=== PATIENT | male | born 1955 | race African-American/Black ===

== ENCOUNTER 2016-11-16 04:58 | Observation (INO) | payer OTHER ==
[2016-11-16] MEDS ORDERED: NS 1,000 ML IV ONE (05:20)
[2016-11-16 05:27] LABS: % IMMATURE GRANULYOCYTES 0.5 % (0.0-1.1); ABSOLUTE IMMATURE GRANULOCYTES 0.04 10^3/uL (0.00-0.10); ADD DIFF? NO; ADD MORPH? NO; ADD SCAN? NO; ATYPICAL LYMPHOCYTE FLAG 0 (0-99); FRAGMENT RBC FLAG 0 (0-99); HEMATOCRIT 43.2 % (40.0-51.0); HEMOGLOBIN 14.7 g/dL (13.7-17.5); LEFT SHIFT FLG 0 (0-99); LIPEMIA HEMOLYSIS FLAG 90 (0-99); MEAN CELL VOLUME 79.3 fL (81.5-99.8); MEAN PLATELET VOLUME 10.8 fL (8.7-11.7); PLATELET CLUMPS FLAG 10 (0-99); PLATELET COUNT 207 10^3/uL (150-400); RED BLOOD CELL COUNT 5.45 10^6/uL (4.40-6.38); RED CELL DISTRIBUTION WIDTH 12.1 % (11.5-15.2)
--- NOTE | 2016-11-16 05:33 | EDPHY ---
H & P Stated Complaint: severe L flank 8/10 since last night with vomiting. HPI/ROS: HPI CHIEF COMPLAINT: Left flank pain nausea, vomiting HISTORY OF PRESENT ILLNESS: This patient 60-year-old male, significant past medical history for coronary artery disease with stent, diet-controlled diabetes , kidney stones, who presents emergency room at 5:15 a.m. in the morning with left-sided flank pain. Patient tells me that around 11 o'clock midnight last night he has had ongoing constant left flank pain that does not radiate. He denies a going to his bladder or belly. Stays in his left low flank. Describes a constant dull ache. Denies chest pain or shortness of breath. He had 2-3 episodes of nausea with vomiting present. No fever. Denies urinary symptoms. Tells me it feels like he previously had a kidney stone. He decided to come to the emergency room because the pain lasted all night. Since arrival has resolved. He denies any flank pain, nausea vomiting. Denies chest pain or shortness of breath. Denies fever. Past Medical History: Diet-controlled diabetes, coronary artery disease with stent, kidney stones, spondylolisthesis Past Surgical History: Stent cardiac, kidney stone surgery Social History: Denies daily use of drugs alcohol tobacco products Family History: Noncontributory ROS REVIEW OF SYSTEMS: A comprehensive 10 point review of systems is otherwise negative aside from elements mentioned in the history of present illness. Exam Constitutional appears well nontoxic, triage nursing summary reviewed, vital signs reviewed, awake/alert. Eyes normal conjunctivae and sclera, EOMI, PERRLA. HENT normal inspection, atraumatic, moist mucus membranes, no epistaxis, neck supple/ no meningismus, no raccoon eyes. Respiratory clear to auscultation bilaterally, normal breath sounds, no respiratory distress, no wheezing. Cardiovascular rate normal, regular rhythm, no murmur, no edema, distal pulses normal. Gastrointestinal soft, non-tender, no rebound, no guarding, normal bowel sounds, no distension, no pulsatile mass. Genitourinary no CVA tenderness. Musculoskeletal no midline vertebral tenderness, full range of motion, no calf swelling, no tenderness of extremities, no meningismus, good pulses, neurovascularly intact. Skin pink, warm, & dry, no rash, skin atraumatic. Neurologic awake, alert and oriented x 3, AAOx3, moves all 4 extremities equally, motor intact, sensory intact, CN II-XII intact, normal cerebellar, normal vision, normal speech. Psychiatric normal mood/affect. Heme/Lymph/Immune no lymphadenopathy. Differential Diagnosis: Includes but is not limited to in a particular order: Kidney stone, hydroureter, hydronephrosis, pyelonephritis, ruptured AAA Medical Decision Making: Plan for this patient blood work, IV fluid bolus, CT abdomen pelvis without contrast for flank pain. Re-evaluation: CT scan of the abdomen pelvis without IV contrast. The results of the study are this shows a 17 mm x 11 mm x 10 mm left-sided stone at the L3 region otherwise no other acute inflammatory process.. The study was read by Dr. Leyva I viewed the images myself on the PACS system. [id number]: Given the size of the stone he will need to follow up with Urology. I referred him this. I will give him Zofran for nausea Mouthcard for pain control. Recommend drinking lots of fluids stay well-hydrated return emergency room with severe pain vomiting or fever. He understands he has very large stone that will need to be broken up. 0554 updated patient. He is resting comfortably. No vomiting no flank pain at this time. Comfortable going home. Understands he needs to follow up with Urology. Understands return precautions. Source: Patient - Personal History Current Tetanus Diphtheria and Acellular Pertussis (TDAP): Yes Tetanus Vaccine Date: 2014 - Medical/Surgical History Hx Asthma: No Hx Chronic Respiratory Disease: No Hx Diabetes: Yes Hx Cardiac Disease: Yes Hx Renal Disease: No Hx Cirrhosis: No Hx Alcoholism: No Hx HIV/AIDS: No Hx Splenectomy or Spleen Trauma: No Other PMH: Diet controlled diabetes type 2. spondylolethiais since age 8. herniated,bulging disc L 4/5. Kidney stones and removal. circumcision age 13, tonsils age 6. overactive bladder, 2 MIs with cardiac stent - Social History Smoking Status: Never smoked Constitutional: Initial Vital Signs Temperature (C) 36.8 C 11/16/16 05:10 Heart Rate 68 11/16/16 05:10 Respiratory Rate 18 11/16/16 05:10 Blood Pressure 135/85 H 11/16/16 05:10 O2 Sat (%) 98 11/16/16 05:10 O2 Delivery Mode Room Air Allergies/Adverse Reactions: No Known Allergies Allergy (Unverified 11/16/16 05:08) Home Medications: Medication Instructions Recorded Aspirin [Aspirin 81mg (*)] 11/16/16 Hydrocodone/APAP 5/325 [Mouthcard 1 - 2 tab PO Q4H PRN #10 tab 11/16/16 5/325] Metoprolol Succinate 25 mg PO BID 11/16/16 Ondansetron HCl [Zofran] 4 mg PO Q4-6PRN PRN #10 tablet 11/16/16 Tolterodine Tartrate [Detrol LA 4 mg DAILY 11/16/16 2MG (*)] Medical Decision Making - Data Points Laboratory Results: Laboratory Results 11/16/16 05:20 11/16/16 05:20 11/16/16 11/16/16 05:20 05:20 WBC 8.52 10^3/uL 10^3/uL (3.80-9.50) RBC 5.45 10^6/uL 10^6/uL (4.40-6.38) Hgb 14.7 g/dL g/dL (13.7-17.5) Hct 43.2 % % (40.0-51.0) MCV 79.3 fL L fL (81.5-99.8) MCH 27.0 pg L pg (27.9-34.1) MCHC 34.0 g/dL g/dL (32.4-36.7) RDW 12.1 % % (11.5-15.2) Plt Count 207 10^3/uL 10^3/uL (150-400) MPV 10.8 fL fL (8.7-11.7) Neut % (Auto) 79.5 % H % (39.3-74.2) Lymph % (Auto) 13.1 % L % (15.0-45.0) [place] % (Auto) 5.9 % % (4.5-13.0) Eos % (Auto) 0.6 % % (0.6-7.6) Baso % (Auto) 0.4 % % (0.3-1.7) Nucleat RBC Rel Count 0.0 % % (0.0-0.2) Absolute Neuts (auto) 6.78 10^3/uL H 10^3/uL (1.70-6.50) Absolute Lymphs (auto) 1.12 10^3/uL 10^3/uL (1.00-3.00) Absolute Monos (auto) 0.50 10^3/uL 10^3/uL (0.30-0.80) Absolute Eos (auto) 0.05 10^3/uL 10^3/uL (0.03-0.40) Absolute Basos (auto) 0.03 10^3/uL 10^3/uL (0.02-0.10) Absolute Nucleated RBC 0.00 10^3/uL 10^3/uL (0-0.01) Immature Gran % 0.5 % % (0.0-1.1) Immature Gran # 0.04 10^3/uL 10^3/uL (0.00-0.10) Sodium 133 mEq/L L mEq/L (134-144) Potassium 4.4 mEq/L mEq/L (3.5-5.2) Chloride 103 mEq/L mEq/L (97-110) Carbon Dioxide 18 mEq/l L mEq/l (22-31) Anion Gap 12 mEq/L mEq/L (8-16) BUN 23 mg/dL mg/dL (7-23) Creatinine 1.7 mg/dL H mg/dL (0.7-1.3) Estimated GFR 41 Glucose 246 mg/dL H mg/dL (70-100) Calcium 9.3 mg/dL mg/dL (8.5-10.4) Lipase 90.0 IU/L IU/L (23-300) Medications Given: Discontinued Medications Sodium Chloride (Ns) 1,000 mls @ 0 mls/hr IV ONCE ONE; Wide Open PRN Reason: Protocol Stop: 11/16/16 05:21 Last Admin: 11/16/16 05:32 Dose: 1,000 mls Departure - Departure Disposition: Home, Routine, Self-Care Clinical Impression: Kidney stone on left side Condition: Fair Instructions: Renal Colic (ED), Kidney Stones (ED) Additional Instructions: 1. Drink lots of fluids stay well-hydrated. 2. Return emergency room if you have worsening pain questions or concerns. 3. You will need to call Urology in follow-up with them. I would recommend calling them on Thursday for an appointment. 4. You have a very large kidney stone on the left side that will need to be either broken up and removed. Referrals: Patient,NotPresent [Primary Care Provider] - As per Instructions Jameson Zamarripa MD [Medical Doctor] - As per Instructions Prescriptions: Hydrocodone/APAP 5/325 [Mouthcard 5/325] 1 - 2 tab PO Q4H PRN #10 tab PRN Reason: Pain, Moderate Ondansetron HCl [Zofran] 4 mg PO Q4-6PRN PRN #10 tablet PRN Reason: Nausea/Vomiting, Use 1st
[2016-11-16 05:44] LABS: CALCIUM 9.3 mg/dL (8.5-10.4); CREATININE 1.7 mg/dL (0.7-1.3); POTASSIUM 4.4 mEq/L (3.5-5.2)
[2016-11-16] MEDS ORDERED: ONDANSETRON 4 MG/2 ML VIAL IVP ONE (05:58)
[2016-11-16] MEDS ORDERED: fentaNYL 100 MCG/2 ML INJ IVP ONE (05:58)
[2016-11-16 06:04] LABS: COLOR YELLOW; LEUKOCYTE ESTERASE,URINE NEGATIVE (NEGATIVE); NITRITE,URINE NEGATIVE (NEGATIVE)
[2016-11-16 06:11] LABS: MUCUS 1+ /lpf (NONE-1+)
[2016-11-16 06:13] LABS: AMORPHOUS 1+ /hpf (NONE-1+); BACTERIA TRACE /hpf (NONE SEEN); RBC,URINE 0-1 /hpf (0-3); WBC,URINE 0-1 /hpf (0-3)
[2016-11-16] MEDS ORDERED: HYDROmorphONE/DILAUDID 1 MG/ML SYR IVP ONE (06:24)
[2016-11-16] MEDS ORDERED: HYDROmorphONE/DILAUDID 1 MG/ML SYR IVP PRN (06:43)
[2016-11-16] MEDS ORDERED: ONDANSETRON 4 MG/2 ML VIAL IVP PRN (06:43)
[2016-11-16] MEDS ORDERED: ACETAMINOPHEN 325 MG TAB PO PRN (06:43)
[2016-11-16] MEDS ORDERED: ONDANSETRON DISINTEGRATING 4 MG TAB PO PRN (06:43)
[2016-11-16] MEDS ORDERED: PROMETHAZINE HCL 25 MG TAB PO PRN (06:43)
[2016-11-16] MEDS ORDERED: PROMETHAZINE HCL 25 MG/ML INJ IVP PRN (06:43)
[2016-11-16] MEDS ORDERED: HYDROmorphONE/DILAUDID 2 MG TAB PO PRN (06:43)
[2016-11-16] MEDS ORDERED: NS 1,000 ML IV SCH (06:45)
[2016-11-16] MEDS ORDERED: LACTULOSE 20 GM/30 ML UDCUP PO PRN (06:46)
[2016-11-16] MEDS ORDERED: POLYETHYLENE GLYCOL 3350 17 GM PKT PO PRN (06:46)
[2016-11-16] MEDS ORDERED: BISACODYL 10 MG SUPP PR PRN (06:46)
[2016-11-16 06:59] VITALS: RESP 18
[2016-11-16 07:34] VITALS: BP 113/62; PULSE 57; TEMP 98.1; O2SAT 97
--- NOTE | 2016-11-16 08:14 | PDGENHP ---
History and Physical - Chief Complaint Acute abdominal pain - History of Present Illness Primary care provider: Dr. Mitesh Syed HPI: 60-year-old male presenting with acute abdominal pain located in the left flank, characterized as 10/10 in severity, associated with nausea and vomiting and onset of severe symptoms at 11:30 p.m. on the night of presentation. Duration was constant thereafter and the pain was only alleviated by fentanyl in the urgent care. Prior to his onset of this severe pain, the patient reports he has been having intermittent bouts of left flank pain over the preceding 24 hours. He otherwise denies any dysuria, hematuria, diarrhea. He reports that the pain is similar in character and location to previous kidney stones, the most recent 1 in 2014. He reports no recent dietary changes and no recent episodes of severe exertion or poor oral intake of fluids. He reports that he is physically active at baseline and goes on walks daily. He does not experience any acute shortness of breath or chest pain when he exerts himself. History Information - Allergies/Home Medication List Allergies/Adverse Reactions: No Known Allergies Allergy (Unverified 11/16/16 05:08) Home Medications: Aspirin [Aspirin 81mg (*)] 11/16/16 [Last Taken Unknown] Metoprolol Succinate 25 mg PO BID 11/16/16 [Last Taken Unknown] Tolterodine Tartrate [Detrol LA 2MG (*)] 4 mg DAILY 11/16/16 [Last Taken Unknown ] I have personally reviewed and updated: family history, medical history, social history, surgical history - Past Medical History Additional medical history: Left-sided nephrolithiasis. Overactive bladder. Diet-controlled diabetes. Coronary artery disease. Spondylolisthesis - Surgical History Additional surgical history: Cardiac stent in 2014. Cystoscopy with stone retrieval in past - Family History Additional family history: Siblings with diabetes, father with kidney stones, no first-degree relatives with end-stage renal disease - Social History Smoking Status: Never smoked Alcohol Use: None Drug Use: None Additional social history: Lives in [place], originally from [place] Review of Systems ROS: 10pt was reviewed & negative except for what was stated in HPI & below Gastrointestinal: Reports: vomitting, abdominal pain, nausea Physical Exam Temp Pulse Resp BP Pulse Ox 36.7 C 57 L 18 113/62 97 11/16/16 07:28 11/16/16 07:28 11/16/16 07:28 11/16/16 07:28 11/16/16 07:28 O2 (L/minute) 2 Constitutional: no apparent distress, appears nourished, not in pain Eyes: PERRL, anicteric sclera, EOMI Ears, Nose, Mouth, Throat: moist mucous membranes, hearing normal, ears appear normal, no oral mucosal ulcers Cardiovascular: regular rate and rhythym, no murmur, rub, or gallop, No edema Respiratory: no respiratory distress, no rales or rhonchi, clear to auscultation Gastrointestinal: normoactive bowel sounds, no palpable masses, tenderness ( Left mid abdomen), No guarding, No distension Genitourinary: no bladder fullness, no bladder tenderness Skin: warm, normal color, no rashes or abrasions, no fluctuance, no induration, No mottled Neurologic: AAOx3, No facial droop Psychiatric: interacting appropriately, not anxious, not encephalopathic, thought process linear Lab Data & Imaging Review 11/16/16 05:20 11/16/16 05:20 WBC 8.52 10^3/uL (3.80-9.50) 11/16/16 05:20 RBC 5.45 10^6/uL (4.40-6.38) 11/16/16 05:20 Hgb 14.7 g/dL (13.7-17.5) 11/16/16 05:20 Hct 43.2 % (40.0-51.0) 11/16/16 05:20 MCV 79.3 fL (81.5-99.8) L 11/16/16 05:20 MCH 27.0 pg (27.9-34.1) L 11/16/16 05:20 MCHC 34.0 g/dL (32.4-36.7) 11/16/16 05:20 RDW 12.1 % (11.5-15.2) 11/16/16 05:20 Plt Count 207 10^3/uL (150-400) 11/16/16 05:20 MPV 10.8 fL (8.7-11.7) 11/16/16 05:20 Neut % (Auto) 79.5 % (39.3-74.2) H 11/16/16 05:20 Lymph % (Auto) 13.1 % (15.0-45.0) L 11/16/16 05:20 [place] % (Auto) 5.9 % (4.5-13.0) 11/16/16 05:20 Eos % (Auto) 0.6 % (0.6-7.6) 11/16/16 05:20 Baso % (Auto) 0.4 % (0.3-1.7) 11/16/16 05:20 Nucleat RBC Rel Count 0.0 % (0.0-0.2) 11/16/16 05:20 Absolute Neuts (auto) 6.78 10^3/uL (1.70-6.50) H 11/16/16 05:20 Absolute Lymphs (auto) 1.12 10^3/uL (1.00-3.00) 11/16/16 05:20 Absolute Monos (auto) 0.50 10^3/uL (0.30-0.80) 11/16/16 05:20 Absolute Eos (auto) 0.05 10^3/uL (0.03-0.40) 11/16/16 05:20 Absolute Basos (auto) 0.03 10^3/uL (0.02-0.10) 11/16/16 05:20 Absolute Nucleated RBC 0.00 10^3/uL (0-0.01) 11/16/16 05:20 Immature Gran % 0.5 % (0.0-1.1) 11/16/16 05:20 Immature Gran # 0.04 10^3/uL (0.00-0.10) 11/16/16 05:20 Sodium 133 mEq/L (134-144) L 11/16/16 05:20 Potassium 4.4 mEq/L (3.5-5.2) 11/16/16 05:20 Chloride 103 mEq/L (97-110) 11/16/16 05:20 Carbon Dioxide 18 mEq/l (22-31) L 11/16/16 05:20 Anion Gap 12 mEq/L (8-16) 11/16/16 05:20 BUN 23 mg/dL (7-23) 11/16/16 05:20 Creatinine 1.7 mg/dL (0.7-1.3) H 11/16/16 05:20 Estimated GFR 41 11/16/16 05:20 Glucose 246 mg/dL (70-100) H 11/16/16 05:20 Calcium 9.3 mg/dL (8.5-10.4) 11/16/16 05:20 Lipase 90.0 IU/L (23-300) 11/16/16 05:20 Urine Color YELLOW 11/16/16 05:54 Urine Appearance CLEAR 11/16/16 05:54 Urine pH 6.0 (5.0-7.5) 11/16/16 05:54 Ur Specific [place] 1.020 (1.002-1.030) 11/16/16 05:54 Urine Protein NEGATIVE (NEGATIVE) 11/16/16 05:54 Urine Ketones TRACE (NEGATIVE) H 11/16/16 05:54 Urine Blood NEGATIVE (NEGATIVE) 11/16/16 05:54 Urine Nitrate NEGATIVE (NEGATIVE) 11/16/16 05:54 Urine Bilirubin NEGATIVE (NEGATIVE) 11/16/16 05:54 Urine Urobilinogen 0.2 EU (0.2-1.0) 11/16/16 05:54 Ur Leukocyte Esterase NEGATIVE (NEGATIVE) 11/16/16 05:54 Urine RBC 0-1 /hpf (0-3) 11/16/16 05:54 Urine WBC 0-1 /hpf (0-3) 11/16/16 05:54 Ur Epithelial Cells TRACE /lpf (NONE-1+) 11/16/16 05:54 Amorphous Sediment 1+ /hpf (NONE-1+) 11/16/16 05:54 Urine Bacteria TRACE /hpf (NONE SEEN) H 11/16/16 05:54 Urine Mucus 1+ /lpf (NONE-1+) 11/16/16 05:54 Urine Glucose 3+ (NEGATIVE) H 11/16/16 05:54 Visualized and Interpreted imaging results: Yes Interpretation: CT of the abdomen demonstrating 17 mm x 11 mm x 10 mm left- sided ureteral stone with hydronephrosis, additional 1 cm stone in the left renal pole Assessment & Plan Assessment: 60-year-old male presenting with acute obstructive uropathy in the setting of chronic nephrolithiasis Plan: 1. Obstructive uropathy. Acute, new problem this provider, further workup indicated. Secondary to left ureteral stone with resultant acute kidney injury secondary to hydronephrosis -requires urgent urologic consultation, Dr. Zamarripa has reportedly been contacted by Dr. Colvin -supportive care interim with IV pain medications, high rate IV fluids, remain NPO until urologic procedure performed -hold on Flomax given patient's history of overactive bladder -strain urine -send stone for analysis once retrieved -monitor urine output closely, repeat serum creatinine level in a.m. 2. Acute kidney injury. Secondary to lower urinary tract obstruction by stone as outlined above, monitor urine output and serum creatinine level -reviewed outside records, normal Cr at baseline 3. Hyponatremia. Acute, secondary to poor oral intake this morning and hypovolemia, give normal saline and monitor 4. Metabolic acidosis. Acute, secondary to hydrocortisone acid loss with vomiting, give normal saline and monitor 5. Nephrolithiasis. Acute on chronic, patient will most likely require ongoing urologic care and possible ESWL for retained left lower pole stone 6. Overactive bladder. Continue Detrol once reconciled, hold on Flomax, patient will require outpatient neurologic follow-up as this is 1 of his most concerning issues 7. Coronary artery disease. Chronic, patient reports no recent reduction in exercise tolerance and he has been adherent to his daily low-dose aspirin as well as beta-daisha -order outside records from [facility] to determine whether patient had [place] 2014, area of damage -RCRI of 0, conferring 0.5% perioperative risk of cardiovascular morbidity and/ or mortality, rendering him low cardiac risk for low risk procedure -recommend proceeding to procedure without further cardiac risk stratification -hold home dosage of aspirin -continue home dosage of beta-daisha Diet. NPO with IV fluids Prophylaxis. Low risk patient, SCDs Code. Full Disposition. Anticipated discharge is 11/17/2016, pending further workup as outlined above. Discussed with Dr. Apollo Colvin at urgent care, we both agree the patient room warrants urgent urologic assessment and retrieval of stone.
[2016-11-16] MEDS ORDERED: IOPAMIDOL (ISOVUE-300) 150 ML BTL ONE (08:54)
[2016-11-16] MEDS ORDERED: METOPROLOL SUCCINATE XR 25 MG TAB PO SCH (09:00)
[2016-11-16] MEDS ORDERED: SENNOSIDES/DOCUSATE SODIUM TAB PO SCH (09:00)
[2016-11-16] MEDS ORDERED: TAMSULOSIN HCL 0.4 MG CAP PO SCH (09:00)
[2016-11-16] MEDS: TOLTERODINE TARTRATE 2 MG EXT REL CAP PO SCH ×2 (10:00→10:06)
--- NOTE | 2016-11-16 10:52 | HOSPPROG ---
Hospitalist Progress Note Subjective: I was notified by nursing that pt was upset, 'no one was talking with him' and he wanted to leave AMA. When I went to the room to speak with him , he had already left. Dr Zamarripa was informed by staff also. Objective: Vital Signs Temp Pulse Resp BP Pulse Ox 98.1 F 57 L 18 113/62 97 11/16/16 07:28 11/16/16 07:28 11/16/16 07:28 11/16/16 07:28 11/16/16 07:28 11/14/16 11/15/16 11/16/16 11:59 11:59 11:59 Intake Total 1000 Output Total 200 Balance 800 ICD10 Worksheet Patient Problems: Problems Problem Status Onset Kidney stone on left side Acute
== END 2016-11-16 10:40 | disposition left against medical advice (07) ==
LOC: CED 04:58 → CEDHOLD 06:06 → F2W 07:00
PROVIDERS: ADMIT Internal Medicine; ATTEND Internal Medicine
DX: N20.1 Calculus of ureter (principal); N17.9 Acute kidney failure, unspecified; N32.81 Overactive bladder; I25.10 Atherosclerotic heart disease of native coronary artery without angina pectoris; M43.10 Spondylolisthesis, site unspecified; Z95.5 Presence of coronary angioplasty implant and graft; E87.1 Hypo-osmolality and hyponatremia; E87.2 Acidosis
CPT/HCPCS: 74176; J2405; J3010; 80048-PO; 81003-PO; 81015-PO; 83690-PO; 85025-PO; 96374; Q9967

== ENCOUNTER 2016-12-14 06:24 | Emergency (ER) | payer OTHER ==
[2016-12-14 06:37] LABS: COLOR YELLOW; LEUKOCYTE ESTERASE,URINE NEGATIVE (NEGATIVE); NITRITE,URINE NEGATIVE (NEGATIVE); PH,URINE 5.5 (5.0-7.5)
--- NOTE | 2016-12-14 07:12 | EDPHY ---
H & P Time Seen by Provider: 12/14/16 06:31 HPI/ROS: CHIEF COMPLAINT: intermittent scrotal pain, history of recent large kidney stone with obstruction, rising creatinine HISTORY OF PRESENT ILLNESS: this is a 60-year-old male who was seen at this ER approximately 4 weeks ago for flank pain. At that time he was diagnosed with a 1.7 x 1.1 cm left ureteral stone with marked marked hydroureter and some hydronephrosis. His creatinine had been climbing up from the baseline of 0.9 in 2014 up to 1.7, this past November 16. This is in the setting of untreated diabetes. Thereby he was sent to [facility] for stenting. However, the patient became reticent to have the stent and signed out AMA. In point of fact he came back here to this facility ER again, arrangements were made again for the stent replaced and he went back to [facility]-although he never did as that was the plan. Ultimately however that same day he re-presented to the [facility] ([place], [place]) ER and was there for 3 hours. He was subsequently placed on Naprosyn for 1 week as well as Flomax for 1 week. He has yet to have any follow-up since that time no repeat of labs. Point of fact, he is really not here for the same pain but instead a scrotal pain. It started some 3 days ago when he was changing his pull-ups in the latter part of the morning. That is to say he uses pull-ups since April because he has such urinary urgency and dribbling. He reports having been evaluated by urologist at that time. However, to his knowledge she has never had cystoscopy. His prostate levels in the past have been 0.4 and of climb to as high as 0.8 but never in the more suspicious range such as greater than 4. As to the scrotal pain is a dull ache lasting for anywhere from 5-10 minutes lb gone for hours at a time. In my reoccurred sooner than that. However this same token in never awakens him at night. It does not seem to be related to the urge to urinate nor is there any relief from the pain as urinates. It seems to come and go spontaneously with no rhyme or reason. Came here this our the morning as he was dropping his roommate off at work, the pain was coming back so he thought it was time to get this looked at. The pain itself started some 3 days ago. It has been intermittent since that time. Has not been getting worse. It is just been bothersome and would not go away. He is further concerned due to a family history of prostate cancer in his dad as well as the recent kidney stone. He has had no fevers or chills. While he has had urinary urgency in the 1st place it is not worse in the last 3 days and this also goes for his tendency for dribbling. He has never been told he has a varicocele or hydrocele. He denies any recent trauma. Denies any STD risk as he has not been sexually active. Other urologic history includes a kidney stone at and 2008. He was seen by urologist in [place] and had a laser removal. Furthermore he was given some form of liquid to dissolve of the kidney stones and it was effective. Finally he had most recently a kidney stone in April of 2015 and again here some 4 weeks ago. CV Above regarding the high-grade stenosis as well as the climbing creatinine which has not yet been repeated. When asked if you would go for the stents this time if indeed his creatinine was further increasing on the basis of an evaluation that I would recommend at this time, he is ambivalent. Does not want to go under in anesthesia without any family being around. REVIEW OF SYSTEMS: Constitutional: No fever, no chills. Eyes: No discharge ENT: No sore throat. Cardiovascular: No chest pain, no palpitations. Respiratory: No cough, shortness of breath, or wheezing. Gastrointestinal: No nausea vomiting or diarrhea. No abdominal pain. Genitourinary: No hematuria or frequency. He has not noted scrotal swelling. Over the last 3 days was in the general area of the scrotum but only tonight that as of this morning when queried dizzy note is more on the right, he is yet notice any swelling. Musculoskeletal: No back pain. Skin: No rashes. Neurological: No headache. 10 point ROS otherwise negative Source: Patient Exam Limitations: No limitations - Personal History Tetanus Vaccine Date: 2014 - Medical/Surgical History Hx Asthma: No Hx Chronic Respiratory Disease: No Hx Diabetes: Yes Hx Cardiac Disease: Yes Hx Renal Disease: No Hx Cirrhosis: No Hx Alcoholism: No Hx HIV/AIDS: No Hx Splenectomy or Spleen Trauma: No Other PMH: Diet controlled diabetes type 2. - though only got down to 8.8 on A1c , he has never been on metformin. spondylolethiais since age 8. herniated, bulging disc L 4/5. Kidney stones and removal. circumcision age 13, tonsils age 6. overactive bladder, 2 MIs with cardiac stent - Family History Significant Family History: Other (Prostate cancer in his father.) - Social History Smoking Status: Never smoked Alcohol Use: None Drug Use: None - Physical Exam Exam: General Appearance: Alert, no distress. Afebrile. Normal phonation. No respiratory distress. Eyes: Pupils equal and round no pallor or injection. No icterus ENT, Mouth: Mucous membranes moist. Pharynx without erythema or exudate. TM Clear. Neck: No adenopathy. Supple. No JVD. Trachea in midline. Respiratory: There are no retractions, lungs are clear to auscultation. Cardiovascular: Regular rate and rhythm. Abdomen: Soft and nontender, no masses, bowel sounds normal. Genitourinary: Circumcised. Is descended bilaterally. Both testes seem to be small however there is fluid around the right testicle which being most compatible with a hydrocele at this point in time verses a varicocele. There is no scrotal tenderness. There is no overlying scrotal erythema. Neurological: Ox3. No motor weakness. Sensation intact. Gait nl. Skin: Warm and dry, no rashes. Musculoskeletal: No joint swelling. Extremities: No edema. Homans sign negative. No cords. Psychiatric: Normal affect. . Constitutional: Initial Vital Signs Temperature (C) 36.7 C 12/14/16 06:30 Heart Rate 80 12/14/16 06:30 Respiratory Rate 16 12/14/16 06:30 Blood Pressure 111/67 12/14/16 06:30 O2 Sat (%) 95 12/14/16 06:30 O2 Delivery Mode Room Air Allergies/Adverse Reactions: No Known Allergies Allergy (Verified 12/14/16 06:28) Home Medications: Medication Instructions Recorded Aspirin [Aspirin 81mg (*)] 81 mg PO BID 11/16/16 Metoprolol Tartrate [Lopressor 25 25 mg PO BID 11/16/16 mg (*)] Multivitamins [Multivitamin (*)] 1 each PO WESA@21 11/16/16 Tolterodine Tartrate [Detrol LA 4 mg PO HS 11/16/16 2MG (*)] Medical Decision Making ED Course/Re-evaluation: The urinalysis is negative. Nothing on the clinical exam suggest a torsion of the testis. However my biggest concern is that of progressive renal failure in the setting of obstructive uropathy from the kidney stone. We will go ahead and run a creatinine to see where he stands. Fortunately the Creatinine did come down to 1.0/ BG remains high. Diffenential includes but not limited to: Hydrocele, Cystocele, Varicosele, pain related to kidney stone, Cystitis, UTi, Pyelonephritis. - Data Points Laboratory Results: Laboratory Results 12/14/16 07:34 12/14/16 07:34 12/14/16 12/14/16 12/14/16 07:34 07:34 06:33 WBC 4.92 10^3/uL 10^3/uL (3.80-9.50) RBC 5.43 10^6/uL 10^6/uL (4.40-6.38) Hgb 14.5 g/dL g/dL (13.7-17.5) Hct 43.2 % % (40.0-51.0) MCV 79.6 fL L fL (81.5-99.8) MCH 26.7 pg L pg (27.9-34.1) MCHC 33.6 g/dL g/dL (32.4-36.7) RDW 12.6 % % (11.5-15.2) Plt Count 199 10^3/uL 10^3/uL (150-400) MPV 11.2 fL fL (8.7-11.7) Neut % (Auto) 52.3 % % (39.3-74.2) Lymph % (Auto) 31.9 % % (15.0-45.0) [place] % (Auto) 7.5 % % (4.5-13.0) Eos % (Auto) 6.9 % % (0.6-7.6) Baso % (Auto) 0.8 % % (0.3-1.7) Nucleat RBC Rel Count 0.0 % % (0.0-0.2) Absolute Neuts (auto) 2.57 10^3/uL 10^3/uL (1.70-6.50) Absolute Lymphs (auto) 1.57 10^3/uL 10^3/uL (1.00-3.00) Absolute Monos (auto) 0.37 10^3/uL 10^3/uL (0.30-0.80) Absolute Eos (auto) 0.34 10^3/uL 10^3/uL (0.03-0.40) Absolute Basos (auto) 0.04 10^3/uL 10^3/uL (0.02-0.10) Absolute Nucleated RBC 0.00 10^3/uL 10^3/uL (0-0.01) Immature Gran % 0.6 % % (0.0-1.1) Immature Gran # 0.03 10^3/uL 10^3/uL (0.00-0.10) Sodium 140 mEq/L mEq/L (134-144) Potassium 4.1 mEq/L mEq/L (3.5-5.2) Chloride 105 mEq/L mEq/L (97-110) Carbon Dioxide 22 mEq/l mEq/l (22-31) Anion Gap 13 mEq/L mEq/L (8-16) BUN 19 mg/dL mg/dL (7-23) Creatinine 1.0 mg/dL mg/dL (0.7-1.3) Estimated GFR > 60 Glucose 147 mg/dL H mg/dL (70-100) Calcium 9.3 mg/dL mg/dL (8.5-10.4) Urine Color YELLOW Urine Appearance CLEAR Urine pH 5.5 (5.0-7.5) Ur Specific [place] 1.015 (1.002-1.030) Urine Protein NEGATIVE (NEGATIVE) Urine Ketones NEGATIVE (NEGATIVE) Urine Blood NEGATIVE (NEGATIVE) Urine Nitrate NEGATIVE (NEGATIVE) Urine Bilirubin NEGATIVE (NEGATIVE) Urine Urobilinogen 0.2 EU EU (0.2-1.0) Ur Leukocyte Esterase NEGATIVE (NEGATIVE) Urine Glucose NEGATIVE (NEGATIVE) Departure - Departure Disposition: Home, Routine, Self-Care Clinical Impression: Scrotal pain Condition: Good Additional Instructions: see the urologist ELYSIA this week. Have them check the status of the left kidney stone as well as the fluid around the left kidney. See your doctor about the Diabetic Treatment Referrals: NONE *PRIMARY CARE P,. [Primary Care Provider] - As per Instructions Chris Wells MD [Medical Doctor] - 2-3 days without fail
[2016-12-14 07:43] LABS: % IMMATURE GRANULYOCYTES 0.6 % (0.0-1.1); ABSOLUTE IMMATURE GRANULOCYTES 0.03 10^3/uL (0.00-0.10); ADD DIFF? NO; ADD MORPH? NO; ADD SCAN? NO; ATYPICAL LYMPHOCYTE FLAG 10 (0-99); FRAGMENT RBC FLAG 0 (0-99); HEMATOCRIT 43.2 % (40.0-51.0); HEMOGLOBIN 14.5 g/dL (13.7-17.5); LEFT SHIFT FLG 0 (0-99); LIPEMIA HEMOLYSIS FLAG 80 (0-99); MEAN CELL HEMOGLOBIN 26.7 pg (27.9-34.1); MEAN CELL HEMOGLOBIN CONCENTR. 33.6 g/dL (32.4-36.7); MEAN CELL VOLUME 79.6 fL (81.5-99.8); MEAN PLATELET VOLUME 11.2 fL (8.7-11.7); PLATELET CLUMPS FLAG 10 (0-99); PLATELET COUNT 199 10^3/uL (150-400); RED BLOOD CELL COUNT 5.43 10^6/uL (4.40-6.38); RED CELL DISTRIBUTION WIDTH 12.6 % (11.5-15.2)
[2016-12-14 07:53] LABS: ANION GAP 13 mEq/L (8-16); CALCIUM 9.3 mg/dL (8.5-10.4); CARBON DIOXIDE 22 mEq/l (22-31); CHLORIDE 105 mEq/L (97-110); GLOMERULAR FILTRATION RATE > 60; GLUCOSE 147 mg/dL (70-100); POTASSIUM 4.1 mEq/L (3.5-5.2); SODIUM 140 mEq/L (134-144)
[2016-12-14 08:27] VITALS: BP 137/74; PULSE 58; RESP 20; TEMP 97.5; O2SAT 98
== END 2016-12-14 08:26 | disposition home or self-care (01) ==
LOC: CED 06:24
DX: N50.82 Scrotal pain (principal); J44.9 Chronic obstructive pulmonary disease, unspecified; Z79.82 Long term (current) use of aspirin
CPT/HCPCS: 80048-PO; 81003-PO; 85025-PO